=== PATIENT | female | born 2000 | race Caucasian/White ===

== ENCOUNTER 2023-09-23 07:41 | Emergency (ER) | payer MEDICAID ==
[~2023-09-23] VITALS: Ht 160 cm; Wt 55.0 kg
[2023-09-23 07:50] VITALS: BP 128/92; PULSE 98; RESP 18; TEMP 98.2; O2SAT 99
[2023-09-23] MEDS ORDERED: SULF1TAB48 MT (08:13)
== END 2023-09-23 08:30 | disposition home or self-care (01) ==
LOC: EDBD → ER 07:41
DX: L02.612 Cutaneous abscess of left foot (principal)
CPT/HCPCS: 99283

== ENCOUNTER 2023-09-23 18:21 | Emergency (ER) | payer MEDICAID ==
[~2023-09-23] VITALS: Ht 160 cm; Wt 57.0 kg
[~2023-09-23 18:21] MED LIST: SULF1TAB48 MT
[2023-09-23 18:25] VITALS: O2SAT 100
[2023-09-23] MEDS: HALOPERIDOL LACTATE 5MG/ML VIAL IM ONE (19:01)
[2023-09-23] MEDS: DIPHENHYDRAMINE 50MG/ML VIAL IM ONE (19:01)
[2023-09-23] MEDS: LORAZEPAM 2MG/ML INJ IM ONE (19:01)
[2023-09-23 19:55] LABS: BASOPHILS % 0.2 % (0.0-2.0); DIFFERENTIAL COMMENT 0; EOSINOPHILS % 0.4 % (0.0-5.0); HEMATOCRIT. 32.5 % (36.0-48.0); HEMOGLOBIN. 10.7 g/dL (12.0-16.0); LYMPHOCYTES % 34.4 % (20.0-50.0); MEAN CORPUSCULAR HEMOGLOBIN 25.8 pg (28.0-32.0); MEAN CORPUSCULAR VOLUME 78.2 fL (81.0-99.0); MEAN PLATELET VOLUME 6.9 fl (7.4-10.4); MONOCYTES % 7.5 % (2.0-8.0); NEUTROPHILS % 57.5 % (40.0-76.0); PLATELET 342 x1000/uL (130-400); RED BLOOD CELL COUNT 4.16 mill/uL (4.2-5.4); RED CELL DISTRIBUTION WIDTH 16.2 % (11.6-14.6); WHITE BLOOD COUNT 8.4 x1000/uL (4.5-11.0)
[2023-09-23 19:57] LABS: CLARITY URINE TURBID (CLEAR); COLOR URINE DARK YELLOW (YELLOW); GLUCOSE URINE NEGATIVE (NEGATIVE); KETONES URINE 3+ (NEGATIVE); LEUKOCYTE ESTERASE URINE 2+ (NEGATIVE); NITRITE URINE NEGATIVE (NEGATIVE); OCCULT BLOOD URINE 1+ (NEGATIVE); PROTEIN URINE 3+ (NEGATIVE); SPECIFIC GRAVITY URINE 1.017 (1.005-1.030)
[2023-09-23 20:03] LABS: CHLORIDE 103 mEq/L (98-107); POTASSIUM 3.3 mEq/L (3.5-5.1); SODIUM 136 mEq/L (136-145)
[2023-09-23 20:04] LABS: CARBON DIOXIDE 23 mEq/L (21-32); INR 1.2; PROTHROMBIN TIME 12.7 sec (9.6-11.0)
[2023-09-23 20:04] LABS: *AMPHETAMINES SCREEN URINE PRESUMPTIVE POSITIVE (NEGATIVE); *BARBITURATES SCREEN URINE NEGATIVE (NEGATIVE); *BENZODIAZEPINES SCREEN URINE NEGATIVE (NEGATIVE); *COCAINE SCREEN URINE NEGATIVE (NEGATIVE); CANNABINOID URINE SCREEN NEGATIVE (NEGATIVE); ECSTASY MDMA SCREEN URINE NEGATIVE (NEGATIVE); METHADONE URINE SCREEN NEGATIVE (NEGATIVE); OPIATES URINE SCREEN NEGATIVE (NEGATIVE); PHENCYCLIDINE URINE SCREEN NEGATIVE (NEGATIVE)
[2023-09-23 20:05] LABS: CALCIUM 9.3 mg/dL (8.7-10.4)
[2023-09-23 20:06] LABS: HCG SCREEN NEGATIVE
[2023-09-23 20:09] LABS: CREATININE 0.6 mg/dL (0.6-1.0)
[2023-09-23 20:10] LABS: GLUCOSE 84 mg/dL (70-105); UREA NITROGEN BLOOD 8 mg/dL (9-23)
[2023-09-23 20:11] LABS: ACETAMINOPHEN < 2 ug/mL (10-30)
[2023-09-23 20:12] LABS: ETHANOL BLOOD < 10 mg/dL (<10)
[2023-09-23 20:14] LABS: THYROID STIMULATING HORMONE < 0.10 uIU/mL (0.55-4.78)
[2023-09-23] MEDS: POTASSIUM CHLORIDE 20MEQ/PACKET PO ONE (20:45)
[2023-09-23 20:51] LABS: WBC URINE TNTC /hpf (0-2)
[2023-09-23 20:52] LABS: BACTERIA URINE 3+; SQUAMOUS EPITHELIAL CELL URINE NONE SEEN /lpf (RARE/1+)
[2023-09-23 20:57] LABS: ALANINE AMINOTRANSFERASE 25 IU/L (10-49); ALBUMIN 4.4 g/dL (3.2-4.8); ASPARTATE AMINOTRANSFERASE 30 IU/L (<34)
[2023-09-23 20:58] LABS: BILIRUBIN DIRECT 0.4 mg/dL (<=3.0); BILIRUBIN TOTAL 0.8 mg/dL (0.1-1.0); PROTEIN TOTAL 7.4 g/dL (6.0-8.3)
[2023-09-23] MEDS: NITROFURANTOIN 100MG M/M CAPSULE PO SCH (21:15)
[2023-09-25 10:51] VITALS: BP 101/48; PULSE 90; RESP 16; TEMP 97.9
== END 2023-09-25 11:04 | disposition home or self-care (01) ==
LOC: ER 18:21
DX: R45.6 Violent behavior (principal); J45.909 Unspecified asthma, uncomplicated; I49.9 Cardiac arrhythmia, unspecified; Z98.890 Other specified postprocedural states; Z00.00 Encounter for general adult medical examination without abnormal findings; Z20.822 Contact with and (suspected) exposure to COVID-19
CPT/HCPCS: 80076; 80305; 80048; 81003; 80307; 80329; 80320; 84703; 84443; 85025; 85610; 87086; 87186; 87077; 36415; 93005; 96372; 99291; 87426; J1200; J1630; J2060; G0480